=== PATIENT | male | born 1935 | race Caucasian/White ===

== ENCOUNTER 2022-09-21 04:25 | Outpatient (RCR) | payer MEDICARE, SELFPAY | END 2022-10-20 23:59 | disposition home or self-care (01) | LOC: MM 04:25 | PROVIDERS: PCP Internal Medicine; Visit Provider Internal Medicine | DX: Z51.81 Encounter for therapeutic drug level monitoring (principal); Z79.01 Long term (current) use of anticoagulants; I48.91 Unspecified atrial fibrillation | CPT/HCPCS: 85610; G0463 ==

== ENCOUNTER 2022-10-25 10:46 | Outpatient (RCR) | payer MEDICARE, SELFPAY | END 2022-11-20 16:44 | disposition home or self-care (01) | LOC: MM 10:46 | PROVIDERS: PCP Internal Medicine; Visit Provider Internal Medicine | DX: Z51.81 Encounter for therapeutic drug level monitoring (principal); Z79.01 Long term (current) use of anticoagulants; I48.91 Unspecified atrial fibrillation | CPT/HCPCS: 85610; G0463 ==

== ENCOUNTER 2022-11-21 08:55 | Outpatient (RCR) | payer MEDICARE, SELFPAY | END 2022-12-21 15:42 | disposition home or self-care (01) | LOC: MM 08:55 | PROVIDERS: Visit Provider Internal Medicine | DX: Z51.81 Encounter for therapeutic drug level monitoring (principal); Z79.01 Long term (current) use of anticoagulants; I48.91 Unspecified atrial fibrillation ==

== ENCOUNTER 2022-12-22 07:52 | Outpatient (RCR) | payer MEDICARE, SELFPAY | END 2023-01-19 16:29 | disposition home or self-care (01) | LOC: MM 07:52 | PROVIDERS: Visit Provider Internal Medicine | DX: Z51.81 Encounter for therapeutic drug level monitoring (principal); Z79.01 Long term (current) use of anticoagulants; I48.91 Unspecified atrial fibrillation | CPT/HCPCS: 85610; G0463 ==

== ENCOUNTER 2023-01-21 23:11 | Outpatient (RCR) | payer MEDICARE, SELFPAY | END 2023-02-20 17:06 | disposition home or self-care (01) | LOC: MM 23:11 | PROVIDERS: Visit Provider Internal Medicine | DX: Z51.81 Encounter for therapeutic drug level monitoring (principal); Z79.01 Long term (current) use of anticoagulants; I48.91 Unspecified atrial fibrillation | CPT/HCPCS: 85610; G0463 ==

== ENCOUNTER 2023-02-21 00:08 | Outpatient (RCR) | payer MEDICARE, SELFPAY | END 2023-03-22 15:59 | disposition home or self-care (01) | LOC: MM 00:08 | PROVIDERS: Visit Provider Internal Medicine | DX: Z51.81 Encounter for therapeutic drug level monitoring (principal); Z79.01 Long term (current) use of anticoagulants; I48.91 Unspecified atrial fibrillation | CPT/HCPCS: 85610; G0463 ==

== ENCOUNTER 2023-03-05 08:06 | Outpatient (OUT) | payer MEDICARE, SELFPAY ==
--- NOTE | 2023-03-05 09:11 | CA_ITS ---
Patient Name: JOSE CANO MR#: [id number] : 1935 Exam Date: 03/05/2023 Ordering Doctor: MRS. 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 DESCRIPTION: COMPLETE ECHOCARDIOGRAM Real-time transthoracic echocardiography with 2D, M-mode, spectral and color flow Doppler performed. QUALITY: Technical quality was good. LEFT VENTRICLE: Normal chamber size. Mild left ventricular hypertrophy. LV EF: Global left ventricular systolic function is normal. Calculated left ventricular ejection fraction is 60%. No significant wall motion abnormalities. DIASTOLIC: Grade II diastolic dysfunction. ATRIAL SEPTUM: Inadequately seen. LEFT ATRIUM: Moderate dilatation. RIGHT ATRIUM: Moderate dilatation. RIGHT VENTRICLE: Appears normal in size. Systolic function appears preserved. TRICUSPID VALVE: Normal mobility and thickness. Unable to assess for mitral stenosis. Moderate regurgitation. Mild pulmonary hypertension. RVSP 39mmHg MITRAL VALVE: Normal mobility and thickness. Mild mitral annular calcification. Mild mitral regurgitation. AORTIC VALVE: Normal trileaflet appearance. Moderately calcified aortic valve. Doppler velocity suggests mild to moderate aortic valve stenosis. DVI 0.3, MACRINA 1.0cm2, Vmax 2.3m/s, Mean gradient 12mmHg.Trivial aortic regurgitation. AORTIC ROOT: Normal diameter and appearance. PULMONIC VALVE: Normal thickness and mobility. No stenosis. Trivial regurgitation. PERICARDIUM: No evidence of pericardial effusion. IVC: Collapses with inspirations. Normal size. CONCLUSION: 1. Global left ventricular systolic function is normal; visually estimated ejection fraction is 55 to 60% 2. Mild increased left ventricular wall thickness 3. Grade 2, moderate diastolic dysfunction 4. The right ventricle appears normal in size and systolic function 5. Biatrial enlargement 6. Moderate tricuspid regurgitation 7. Mildly elevated right ventricular systolic pressure; RVSP 39 mmHg 8. Mild mitral regurgitation 9. Mild to moderate aortic valve stenosis Adult Echocardiography Procedure Report Left Ventricle LVEDD (3.7 - 5.6 cm): 5.53 cm LVESD (2.2 - 4.0 cm): 3.93 cm LVIVS thickness (0.6 - 1.2 cm): 1.26 cm LVPW thickness (0.5 - 1.0 cm): 1.13 cm e': 0.08 m/s E - e': 12.12 LVOT Max Gradient: 2.15 mm[Hg] LVOT Area (cm2): 0.73 m/s Peak Velocity (LVOT): 0.73 m/s Mean Velocity (LVOT): 0.45 m/s LVOT Diameter 2.06 cm Left Ventricular Ejection Fraction: 59.94 % Left Atrium LA Volume Index (2D A2C): 35.90 ml/m2 Left Atrium Systolic Dimension: 4.89 cm Mitral Valve MV E to A Ratio: 1.05 Mitral Valve A-Wave Peak Velocity: 0.89 m/s Mitral Valve E-Wave Peak Velocity: 0.93 m/s Right Ventricle RV Internal Diastolic Dimension: 4.65 cm Aorta AO Root Diam: 3.16 cm Ascending Ao Diam: 2.85 cm Aortic Valve AoV Area (Peak Jeffry): 1.04 cm2, 1.04 cm2 AoV Area (VTI): 0.94 cm2, 0.94 cm2 Peak Velocity(Antegrade Flow): 2.34 m/s Peak Gradient(Antegrade Flow): 21.92 mm[Hg] Mean Velocity(Antegrade Flow): 1.65 m/s Mean Gradient(Antegrade Flow): 12.38 mm[Hg] Velocity Time Integral: 60.51 cm Tricuspid Valve Peak Velocity (Regurgitant Flow): 3.31 m/s, 2.99 m/s, 2.98 m/s Pulmonic Valve Mean Gradient: 3.12 mm[Hg], 2.60 mm[Hg] Mean Velocity: 0.81 m/s, 0.74 m/s Peak Velocity: 1.21 m/s Peak Gradient: 6.31 mm[Hg], 5.47 mm[Hg] Right Atrium Right Atrium Systolic Pressure: 84.25 ml, 84.25 ml Dictated by: Iban Garcia M.D. on 03/06/2023 at 09:31 Approved by: Iban Garcia M.D. on 03/06/2023 at 09:38
== END 2023-03-05 08:07 | disposition home or self-care (01) ==
LOC: CARD 08:06
PROVIDERS: Visit Provider Nurse Practitioner Acute Care
DX: I08.0 Rheumatic disorders of both mitral and aortic valves (principal); I50.22 Chronic systolic (congestive) heart failure
CPT/HCPCS: 93306

== ENCOUNTER 2023-03-23 08:45 | Outpatient (RCR) | payer MEDICARE, SELFPAY | END 2023-04-20 14:29 | disposition home or self-care (01) | LOC: MM 08:45 | PROVIDERS: Visit Provider Internal Medicine | DX: Z51.81 Encounter for therapeutic drug level monitoring (principal); Z79.01 Long term (current) use of anticoagulants; I48.91 Unspecified atrial fibrillation | CPT/HCPCS: 85610; G0463 ==

== ENCOUNTER 2023-05-09 15:42 | Outpatient (RCR) | payer MEDICARE, SELFPAY | END 2023-05-23 15:31 | disposition home or self-care (01) | LOC: MM 15:42 | PROVIDERS: Visit Provider Internal Medicine | DX: Z51.81 Encounter for therapeutic drug level monitoring (principal); Z79.01 Long term (current) use of anticoagulants; I48.91 Unspecified atrial fibrillation | CPT/HCPCS: 85610; G0463 ==

== ENCOUNTER 2023-05-24 00:37 | Outpatient (RCR) | payer MEDICARE, SELFPAY | END 2023-06-21 17:02 | disposition home or self-care (01) | LOC: MM 00:37 | PROVIDERS: Visit Provider Internal Medicine | DX: Z51.81 Encounter for therapeutic drug level monitoring (principal); Z79.01 Long term (current) use of anticoagulants; I48.91 Unspecified atrial fibrillation | CPT/HCPCS: 85610; G0463 ==

== ENCOUNTER 2023-06-22 03:22 | Outpatient (RCR) | payer MEDICARE, SELFPAY | END 2023-07-20 14:00 | disposition home or self-care (01) | LOC: MM 03:22 | PROVIDERS: Visit Provider Internal Medicine | DX: Z51.81 Encounter for therapeutic drug level monitoring (principal); Z79.01 Long term (current) use of anticoagulants; I48.91 Unspecified atrial fibrillation ==

== ENCOUNTER 2023-07-23 03:18 | Outpatient (RCR) | payer MEDICARE, SELFPAY | END 2023-08-21 17:40 | disposition home or self-care (01) | LOC: MM 03:18 | PROVIDERS: Visit Provider Internal Medicine | DX: Z51.81 Encounter for therapeutic drug level monitoring (principal); Z79.01 Long term (current) use of anticoagulants; I48.91 Unspecified atrial fibrillation | CPT/HCPCS: 85610; G0463 ==

== ENCOUNTER 2023-08-22 00:12 | Outpatient (RCR) | payer MEDICARE, SELFPAY | END 2023-09-21 11:06 | disposition home or self-care (01) | LOC: MM 00:12 | PROVIDERS: Visit Provider Internal Medicine | DX: Z51.81 Encounter for therapeutic drug level monitoring (principal); Z79.01 Long term (current) use of anticoagulants; I48.91 Unspecified atrial fibrillation | CPT/HCPCS: 85610; G0463 ==

== ENCOUNTER 2023-09-18 07:36 | Outpatient (OUT) | payer MEDICARE, SELFPAY ==
--- OUTSIDE RECORDS SUMMARY | 2023-09-18 07:39 | XMS_ITS ---
Patient Summarization (C-CDA 2.1 CCD) Created on: September 18, 2023 JAUN ESPINOZA : 1935 Sex: Male Author Organization Sample organization Care Team Providers Care Passenger Brakeman Name Role Phone PHYSICIAN, DEFAULT Unavailable Unavailable PHYSICIAN, DEFAULT Unavailable Unavailable HOYJOSÉ MIGUEL Unavailable Unavailable FAWWAD, MUNOZ H Attending Unavailable HOY ., DR VALDEZ Primary Care Unavailable FAWWAD, MUNOZ H Admitting Unavailable FAWWAD, MUNOZ H Attending Unavailable HOY ., DR VALDEZ Primary Care Unavailable FAWWAD, MUNOZ H Admitting Unavailable HOY ., DR VALDEZ Primary Care Unavailable FAWWAD, MUNOZ H Admitting Unavailable FAWWAD, MUNOZ H Attending Unavailable FAWWAD, MUNOZ H Attending Unavailable HOY ., DR VALDEZ Primary Care Unavailable FAWWAD, MUNOZ H Admitting Unavailable FAWWAD, MUNOZ H Attending Unavailable HOY ., DR VALDEZ Primary Care Unavailable FAWWAD, MUNOZ H Admitting Unavailable HOY ., DR VALDEZ Primary Care Unavailable FAWWAD, MUNOZ H Attending Unavailable FAWWAD, MUNOZ H Admitting Unavailable HOY ., DR VALDEZ Primary Care Unavailable FAWWAD, MUNOZ H Admitting Unavailable FAWWAD, MUNOZ H Attending Unavailable HOY ., DR VALDEZ Primary Care Unavailable FAWWAD, MUNOZ H Admitting Unavailable FAWWAD, MUNOZ H Attending Unavailable HOY ., DR VALDEZ Admitting Unavailable HOY ., DR VALDEZ Attending Unavailable HOY ., DR VALDEZ Consulting Unavailable HOY ., DR VALDEZ Primary Care Unavailable FAWWAD, MUNOZ H Admitting Unavailable HOY ., DR VALDEZ Primary Care Unavailable FAWWAD, MUNOZ H Attending Unavailable HOY ., DR VALDEZ Primary Care Unavailable FAWWAD, MUNOZ H Attending Unavailable FAWWAD, MUNOZ H Admitting Unavailable FAWWAD, MUNOZ H Attending Unavailable HOY ., DR JOSÉ MIGUEL Primary Care Unavailable SHAIKH Matthew HARRIS Admitting Unavailable MARIANGEL KAISER Attending Unavailable Encounters Encounter Date Encounter Type Care Provider Facility Start: 02-22-2023 End: 02-22-2023 ambulatory MARIANGEL KAISER [facility] Start: 08-21-2022 End: 09-20-2022 ambulatory SHAIKH Matthew HARRIS Facility:[facility] Start: 07-24-2022 End: 08-18-2022 ambulatory SHAIKH Matthew HARRIS Facility:[facility] Start: 06-21-2022 End: 07-21-[address] JOSÉ MIGUEL CABELLO . Facility:[facility] Start: 05-24-2022 End: 06-21-[address] JOSÉ MIGUEL CABELLO . Facility:[facility] Start: 04-24-2022 End: 05-23-2022 ambulatory SHAIKH Matthew HARRIS Facility:[facility] Start: 03-23-2022 End: 04-23-2022 ambulatory SHAIKH Matthew HARRIS Facility:[facility] Start: 02-21-2022 End: 03-22-2022 ambulatory SHAIKH Matthew HARRIS Facility:[facility] Start: 01-23-2022 End: 01-24-[address] JOSÉ MIGUEL CABELLO . Facility:[facility] Start: 01-21-2022 End: 02-20-[address] JOSÉ MIGUEL CABELLO . Facility:[facility] Start: 12-22-2021 End: 01-21-[address] JOSÉ MIGUEL CABELLO . Facility:[facility] Start: 11-21-2021 End: 12-21-[address] JOSÉ MIGUEL CABELLO . Facility:[facility] Start: 10-21-2021 End: 11-18-2021 ambulatory SHAIKH Matthew HARRIS Facility:[facility] Start: 04-19-2018 End: 04-20-2018 Patient encounter procedure DEFAULT PHYSICIAN Facility:[facility] Payers Date Payer Category Payer Medicare [id number] 1957 Medicare [id number] 1957 Unknown [id number] 1935 Unknown [id number] 2.16.8 [id number] 1935 Unknown [id number] 2.16.84 [id number] 1935 Unknown [id number] 2.16.84 [id number] 1935 Unknown [id number] 2.16.84 [id number] 1935 Unknown [id number] 2.16.84 [id number] 1935 Unknown [id number] 2.16.84 [id number] 1935 Unknown [id number] 2.16.84 [id number] 1935 Unknown [id number] 2.16.84 [id number] 1935 Unknown [id number] 2.16.84 [id number] 1935 Unknown [id number] 2.16.84 [id number] 1935 Unknown [id number] 2.16.84 [id number] 1935 Unknown [id number] 2.16.84 [id number] 1935 Unknown [id number] 2.16.84 [id number] Unknown Problems Problem Classification Problem Date Documented Date Episodic/Chronic Cardiac dysrhythmias (5 sources) Unspecified atrial fibrillation; Translations: [UNSPECIFIED ATRIAL FIBRILLATION] Onset: 07-24-2022 Chronic Congestive heart failure; nonhypertensive (2 sources) Chronic systolic (congestive) heart failure; Translations: [Chronic systolic (congestive) heart failure] Onset: 02-22-2023 Chronic Coronary atherosclerosis and other heart disease (2 sources) Atherosclerotic heart disease of [place] coronary artery without angina pectoris; Translations: [Atherosclerotic heart disease of [place] coronary artery without angina pectoris] Onset: 02-22-2023 Chronic Essential hypertension (2 sources) Essential (primary) hypertension; Translations: [Essential (primary) hypertension] Onset: 02-22-2023 Chronic Heart valve disorders (2 sources) Rheumatic disorders of both mitral and aortic valves; Translations: [Rheumatic disorders of both mitral and aortic valves] Onset: 02-22-2023 Chronic Other aftercare (5 sources) Encounter for therapeutic drug level monitoring; Translations: [ENC THERAPEUTC DRUG LEVL MONITORING] Onset: 08-19-2022 Episodic Other aftercare (1 source) halfway (current) use of anticoagulants; Translations: [BED CONTROL SPECIALIST CURRNT USE ANTICOAGULANTS] Onset: 09-20-2022 Episodic Residual codes; unclassified (4 sources) Obstructive sleep apnea (adult) (pediatric); Translations: [OBSTRUCTIVE SLEEP APNEA] Onset: 01-23-2022 Chronic Results Test Name Value Interpretation Reference Range Facil ity 36on 06-07-2023 36 Regarding echo performed 05/05/2023: MD Debbie Theodore MA Echo shows stable heart function. follow-up as planned. LM for patient on his VM. Asked him to return my call if he had questions or concerns. [facility] 36on 03-08-2023 36 Please let him blood pressures a little high, we can restart Amlodipine at lower dose 2.5 mg daily. Please send scripts. Normal [facility] Office Visiton 02-22-2023 Follow-up visit [id number] Jaun Espinoza 1935 M Date Provider Department Center 02/22/2023 [id number] KAISER [facility] Family History Problem Relation Age of Onset Stroke Mother Coronary artery disease Mother Cancer Father Coronary artery disease Sister Family Status - Relation Status Age at Mother Father Sister Level of Service:12412 [place] OFFICE/OUTPATIENT ESTABLISHED MOD MDM 30-39 MIN [facility] Progress note 02-22-2023 Note Date & Type Note Facility 02-22-2023 Note Cardiology Clinic No te Subjective Jaun Remy Rutherford is a 87 y.o. year old male patient with past medical history of coronary artery disease status post CABG in 2016, paroxysmal atrial flutter on Eliquis, Hypertension,and valvular heart disease seen in follow-up. Patient Active Problem List Diagnosis Aortic valve stenosis Atrial flutter (CMS/HCC) Cardiovascular stress test abnormal Coronary arteriosclerosis Dyspnea Hypertensive disorder Nausea Obesity Systolic heart failure (CMS/HCC) Family History Problem Relation Name Age of Onset Stroke Mother Coronary artery disease Mother Cancer Father Coronary artery disease Sister Social History Tobacco Use Smoking status: Former Types: Cigarettes Smokeless tobacco: Never Substance Use Topics Alcohol use: Yes Comment: occasional HPI He is an 87-year-old man. He has CAD s/p CABG surgery and reversion of atrial flutter. He underwent CABG surgery on 08/11/2015 for severe 3 vessel disease. His LV function was normal before and after the operation. One week after discharge, he developed atrial flutter and reduced LV EF of 20%. He underwent cardioversion to sinus rhythm. He was maintained on amiodarone and coumadin (NOAC have high copay for him). He follows with the anticoagulation clinic at [facility]. He has mild aortic valve stenosis. He has a linq recorder implant 10/2015. This has been recording sinus rhythm. The last loop recorder check in January 2019 showed no evidence of atrial fibrillation. Battery is at [employer]. Review of Systems Cardiovascular: Negative for chest pain, dyspnea on exertion, irregular heartbeat, leg swelling, near-syncope, orthopnea, palpitations, paroxysmal nocturnal dyspnea and syncope. Objective Visit Vitals BP 134/68 (BP Location: Left arm, Patient Position: Sitting) Pulse 66 Ht 1.803 m (5' 11 ) Wt 110 kg (243 lb) SpO2 97% BMI 33.89 kg/m??? Smoking Status Former BSA 2.35 m??? Physical Exam General: Awake, alert, NAD Pulm: Breath sounds clear to ascultation bilaterally with no wheeze, crackles or rhonchi Cards: Regular rate and rhythm, S1, S2. No S3 or S4 gallop. Murmur: II/ JULIET Extr: Lower extremity edema: None. DP pulses:2+ Skin: warm, dry, well perfused Neuro: A&Ox3, No gross deficits Allergies No Known Allergies Medications Current Outpatient Medications: aspirin 81 mg chewable tablet, Chew 1 tablet every day by oral route., Disp: , Rfl: metoprolol succinate XL (Toprol-XL) 50 mg 24 hr tablet, Take 1 tablet (50 mg) by mouth in the morning., Disp: 90 tablet, Rfl: 3 pravastatin (Pravachol) 40 mg tablet, Take 1 tablet (40 mg) by mouth in the morning., Disp: 90 tablet, Rfl: 3 warfarin (Coumadin) 2 mg tablet, TAKE 1 TO 2 TABLETS BY MOUTH DAILY DIRECTED by medication management clinic, Disp: , Rfl: amLODIPine (Norvasc) 10 mg tablet, Take 1 tablet (10 mg) by mouth in the morning. (Patient not taking: Reported on 02/22/2023), Disp: 90 tablet, Rfl: 3 amLODIPine (Norvasc) 5 mg tablet, Take 1 tablet (5 mg) by mouth in the morning., Disp: 90 tablet, Rfl: 3 Recent Labs No recent labs Imaging and other tests Echocardiogram 06/01/2021: LV systolic function is normal, visually estimated ejection fraction is 55 to 60%, segmental wall motion abnormalities seen, diastolic function is indeterminate, RV is normal size and function. Mild tricuspid regurgitation, mildly elevated right-sided pressures, mild aortic valve stenosis. Blood testing 06/02/2021: Hemoglobin 13.4, platelets 233, potassium 4.6, BUN 17, creatinine 0.83, cholesterol 129, HDL 37, triglycerides 107, LDL 78. Prior testing: ECHO 10/28/2019 Global left ventricular systolic function is normal. The EF is 55 % visually. Unable to assess diastolic dysfunction. The right ventricle is normal in size. Right ventricular systolic function appears normal. Doppler studies suggest normal right sided pressures. Mild mitral regurgitation. Mild aortic valve stenosis. Mild tricuspid regurgitation. No significant change when compared to the previous study 04/19/2018 Echocardiogram 04/19/2018: Global left ventricular systolic function is at lower limits of normal (Visually estimated EF 50%). The left ventricle is normal size. Left ventricular wall thickness is mildly increased. Concentric left ventricular hypertrophy. The septum is abnormal in its motion, not unusal finding in the post open heart patient. Normal diastolic function. Mild mitral regurgitation. Mild tricuspid regurgitation. Doppler studies suggest mildly elevated right sided pressures. RVSP 42 mmHg. The peak instantaneous transvalvular aortic gradient = 26 mmHg with mean gradient = 14 mmHg and aortic valve area = 1.5-1.6 cm2 by continuity equation. The dimensionless index = 0.39 (less than 0.25 is consistent with severe aortic stenosis.) Compared to prior echocardiograms of 2016 there is now mild aortic stenosis. Note that prior echoca (more content not included)... [facility] Progress note 02-22-2023 Note Date & Type Note Facility 02-22-2023 Note Patient here for 1 y ear follow up CAD, aortic valve stenosis, systolic heart failure, and atrial flutter. Annual echo has not been completed yet. He has been out of amlodipine for awhile now. Denies chest pain, SOB, palpitations, lightheadedness, and bleeding on warfarin. Review of Systems All other systems reviewed and are negative. [facility] Summary Purpose Family History No Family History Records FoundNo Family History Records FoundNo Family History Records Found Advance Directives No Advanced Directives Records FoundNo Advanced Directives Records FoundNo Advanced Directives Records Found Additional Source Comments (unrecognized sect ion and content) No Status Records FoundNo Status Records FoundNo Status Records Found INFORMATION SOURCE (unrecogn ized section and content) DATE CREATED AUTHOR 04/20/2018 [facility] DATE CREATED AUTHOR AUTHOR'S ORGANIZ ATION 09/29/2022 [facility] DATE CREATED AUTHOR AUTHOR'S ORGANIZ ATION 06/09/2023 [facility] FOR RECORDS PERTAINING TO PATIENTS WHO ARE OR HAVE BEEN ENROLLED IN A CHEMICAL DEPENDENCY/SUBSTANCEABUSE PROGRAM, SOME INFORMATION MAY BE OMITTED. This clinical summary was aggregated from multiple sources. Caution should be exercised in using it in the provision of clinical care. This summary normalizes information from multiple sources, and as a consequence, information in this document may materially change the coding, format and clinical context of patient data. In addition, data may be omitted in some cases. CLINICAL DECISIONS SHOULD BE BASED ON THE PRIMARY CLINICAL RECORDS. [employer] provides no warranty or guarantee of the accuracy or completeness of information in this document.
[2023-09-18 08:07] LABS: Basophils Absolute Auto 0.1 10^3/uL (0.0-0.1); Basophils Percent Auto 0.8 % (0.2-2.0); Eosinophils Absolute Auto 0.2 10^3/uL (0.0-0.7); Eosinophils Percent Auto 3.2 % (0.9-7.0); Hematocrit 41.9 % (42.0-54.0); Hemoglobin 13.1 g/dL (14.0-18.0); Immature Granulocytes Abs Auto 0.02 10^3/uL (0.00-0.03); Immature Granulocytes Pct Auto 0.3 % (0.0-0.5); Lymphocytes Absolute Auto 1.1 10^3/uL (1.2-3.8); Lymphocytes Percent Auto 18.4 % (20.5-60.0); Mean Corpuscular HGB Conc 31.3 g/dL (29.9-35.2); Mean Corpuscular Hemoglobin 28.2 pg (25.9-34.0); Mean Corpuscular Volume 90.3 fL (80.0-94.0); Mean Platelet Volume 9.6 fL (9.5-13.5); Monocytes Absolute Auto 0.5 10^3/uL (0.3-0.8); Monocytes Percent Auto 7.9 % (1.7-12.0); Neutrophils Absolute Auto 4.3 10^3/uL (1.4-6.5); Neutrophils Percent Auto 69.4 % (43.0-75.0); Platelet Count 191 10^3/uL (150-450); Red Blood Count 4.64 10^6/uL (4.70-6.10); White Blood Count 6.2 10^3/uL (4.0-11.0)
[2023-09-18 08:53] LABS: Alanine Aminotransferase 25 U/L (16-63); Albumin Globulin Ratio 0.8; Albumin Level 3.2 g/dL (3.4-5.0); Alkaline Phosphatase 104 U/L (46-116); Anion Gap 10.6; Aspartate Amino Transferase 21 U/L (15-37); BUN Creatinine Ratio 19.1; Bilirubin Total 0.3 mg/dL (0.2-1.0); Calcium 8.5 mg/dL (8.5-10.1); Carbon Dioxide 29.5 mmol/L (21.0-32.0); Chloride 103 mmol/L (98-107); Chol HDL Ratio 3.4; Cholesterol 148 mg/dL (<=200); Estimated GFR (African America >60 (>=60); Estimated GFR (Non-African Ame >60 (>=60); Globulin 3.9 g/dL; Glucose 111 mg/dL (74-106); HDL Cholesterol 44 mg/dL (40-60); LDL Cholesterol Calculated 76.8 mg/dL; Potassium 4.1 mmol/L (3.5-5.1); Sodium 139 mmol/L (136-145); Total Protein 7.1 g/dL (6.4-8.2); Triglycerides 136 mg/dL (<=150); VLDL CHOLESTEROL 27.2 mg/dL
== END 2023-09-18 07:37 | disposition home or self-care (01) ==
LOC: LAB 07:37
PROVIDERS: PCP Family Medicine; Visit Provider Nurse Practitioner Acute Care
DX: I25.10 Atherosclerotic heart disease of native coronary artery without angina pectoris (principal)
CPT/HCPCS: 36415; 80053; 80061; 85025

== ENCOUNTER 2023-09-24 00:07 | Outpatient (RCR) | payer MEDICARE, SELFPAY | END 2023-10-19 09:54 | disposition home or self-care (01) | LOC: MM 00:07 | PROVIDERS: PCP Family Medicine; Visit Provider Internal Medicine | DX: Z51.81 Encounter for therapeutic drug level monitoring (principal); Z79.01 Long term (current) use of anticoagulants; I48.91 Unspecified atrial fibrillation | CPT/HCPCS: 85610; G0463 ==

== ENCOUNTER 2023-09-27 06:51 | Outpatient (OUT) | payer MEDICARE, SELFPAY ==
--- OUTSIDE RECORDS SUMMARY | 2023-09-27 06:53 | XMS_ITS | CCD ---
Author Organization [facility] [place] Care Team Providers Care Produce Specialist Name Role Phone PHYSICIAN, DEFAULT Unavailable Unavailable PHYSICIAN, DEFAULT Unavailable Unavailable DAVIDYJOSÉ MIGUEL Unavailable Unavailable FAWWAD, MUNOZ H Attending [...] Admitting Unavailable FAWWAD, MUNOZ H Attending Unavailable DR JOSÉ MIGUEL PEÑA Primary Care Unavailable SHAIKH Matthew HARRIS Admitting Unavailable MARIANGEL KAISER Attending Unavailable SURAJ BROWN Attending Unavailable Problems Problem Classification Problem Date Documented Date Episodic/Chronic Cardiac dysrhythmias (7 sources) Unspecified atrial fibrillation; Translations: [Unspecified atrial flutter] Onset: 07-24-2022 Chronic Congestive heart failure; nonhypertensive (4 sources) Chronic diastolic (congestive) heart failure; Translations: [Chronic systolic (congestive) heart failure] Onset: 02-22-2023 Chronic Coronary atherosclerosis and other heart disease (2 sources) Atherosclerotic heart disease of [place] coronary artery without angina pectoris; Translations: [Atherosclerotic heart disease of [place] coronary artery without angina pectoris] Onset: 02-22-2023 Chronic Essential hypertension (2 sources) Essential (primary) hypertension; Translations: [Essential (primary) hypertension] Onset: 02-22-2023 Chronic Heart valve disorders (4 sources) Nonrheumatic aortic (valve) stenosis; Translations: [Rheumatic disorders of both mitral and aortic valves] Onset: 02-22-2023 Chronic Other aftercare (5 sources) Encounter for therapeutic drug level monitoring; Translations: [ENC THERAPEUTC DRUG LEVL MONITORING] Onset: 08-19-2022 Episodic Other aftercare (1 source) 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; Translations: [AXMINSTER WEAVER CURRNT USE ANTICOAGULANTS] Onset: 09-20-2022 Episodic Residual codes; unclassified (4 sources) Obstructive sleep apnea (adult) (pediatric); Translations: [OBSTRUCTIVE SLEEP APNEA] Onset: 01-23-2022 Chronic Results Test Name Value Interpretation Reference Range Facil ity Office Visiton 09-19-2023 Follow-up visit [id number] Jaun Espinoza 1935 M Date Provider Department Center 09/19/2023 [facility]SURAJ BROWN [facility] Family History Problem Relation Age of Onset Stroke Mother Coronary artery disease Mother Cancer Father Coronary artery disease Sister Family Status - Relation Status Age at Mother Father Sister Level of Service:85629 SD OFFICE/OUTPATIENT ESTABLISHED MOD MDM [address] [facility] 36on 06-07-2023 36 Regarding echo performed 05/05/2023: MD Debbie Theodore MA Echo shows stable heart function. follow-up as planned. LM for patient on his VM. Asked him to return my call if he had questions or concerns. [facility] 36on 03-08-2023 36 Please let him blood pressures a little high, we can restart Amlodipine at lower dose 2.5 mg daily. Please send scripts. [facility] Office Visiton 02-22-2023 Follow-up visit [id number] Jaun Espinoza 1935 Date Provider Department Center 02/22/2023 [facility] Family History Problem Relation Age of Onset Stroke Mother Coronary artery disease Mother Cancer Father Coronary artery disease Sister Family Status - Relation Status Age at Mother Father Sister Level of Service:40890 SD OFFICE/OUTPATIENT ESTABLISHED MOD MDM 30-39 MIN [facility] Encounters Encounter Date Encounter Type Care Provider Facility Start: 09-19-2023 End: 09-19-[address]OWN [facility] Start: 02-22-2023 End: 02-22-2023 ambulatory MARIANGEL KAISER [facility] Start: 08-21-2022 End: 09-20-2022 ambulatory SHAIKH Matthew HARRIS Facility:[facility] Start: 07-24-2022 End: 08-18-2022 ambulatory SHAIKH Matthew HARRIS Facility:[facility] Start: 06-21-2022 End: 07-21-[address] JOSÉ MIGUEL CABELLO . Facility:[facility] Start: 05-24-2022 End: 06-21-[address] JOSÉ MIGUEL CABELLO . Facility:[facility] Start: 04-24-2022 End: 05-23-2022 ambulatory H FAWWAElva Facility:[facility] Start: 03-23-2022 End: 04-23-2022 ambulatory SHAIKH [...] End: 04-20-2018 Patient encounter procedure DEFAULT PHYSICIAN Facility:[facility] Payers Date Payer Category Payer Medicare [id number] 1957 Medicare [id number] 1957 Unknown [id number] 1935 Unknown [id number] 2.16.8 40.1.659074.3.579.2.647 1935 Unknown [id number] 2.16.84 0.1.891495.3.579.2.593 1937 Unknown [id number] 2.16.84 0.1.040288.3.579.2.593 1937 Unknown [id number] 2.16.84 0.1.614904.3.579.2.593 1937 Unknown [id number] 2.16.84 0.1.224573.3.579.2.593 1937 Unknown [id number] 2.16.84 0.1.664202.3.579.2.593 1937 Unknown [id number] 2.16.84 0.1.688600.3.579.2.593 1937 Unknown [id number] 2.16.84 0.1.353515.3.579.2.593 1937 Unknown [id number] 2.16.84 0.1.617658.3.579.2.593 1937 Unknown [id number] 2.16.84 0.1.079586.3.579.2.593 1937 Unknown [id number] 2.16.84 0.1.511378.3.579.2.593 1937 Unknown [id number] 2.16.84 0.1.998479.3.579.2.593 1937 Unknown [id number] 2.16.84 0.1.650775.3.579.2.593 Unknown Progress note 09-19-2023 Note Date & Type Note Facility 09-19-2023 Note [place] Cardiology - [facility] Subjective Jaun Espinoza is a 88 y.o. year old male patient being seen for 6 mo follow up CAD, hypertension, mitral and aortic valve stenosis, and chronic systolic heart failure. He was restarted on low dose amlodipine shortly after last visit in Feb 2023 for uncontrolled BP's. Had echo around that time as well. Routine labs w/ lipid panel were performed yesterday. He denies chest pain, SOB, palpitations, and lightheadedness/syncope. Patient Active Problem List Diagnosis Aortic valve [...] Topics Alcohol use: Yes Comment: occasional HPI Mr Espinoza is seen in follow up. He is an 88-year-old man. He has CAD s/p CABG surgery [...] He follows with the anticoagulation clinic at [facility]. He has aortic valve stenosis being followed with echocardiogram. He has a linq recorder implant 10/2015. This has been recording sinus rhythm. The last loop recorder check in January 2019 showed no evidence of atrial fibrillation. Battery is at PATIENT ACCESS. He has been well with no symptoms. He feels good. He has no chest pain and no shortness of breath. He is doing well. He has no lower extremity swelling. He has no palpitations. His main complaint is easy bruisability and bruising in the arms. Review of Systems Hematologic/Lymphatic: Bruises/bleeds easily. Skin: Positive for color change (easy bruising). Musculoskeletal: Positive for arthritis and back pain. All other systems reviewed and are negative. Objective Visit Vitals BP 134/80 (BP Location: Right arm, Patient Position: Sitting) Pulse 70 Ht 1.803 m (5' 11 ) Wt 108 kg (237 lb) SpO2 97% BMI 33.05 kg/m??? Smoking Status Former BSA 2.33 m??? Physical Exam Constitutional: Appearance: He is well-developed. He is not ill-appearing. HENT: Head: Normocephalic and atraumatic. Nose: Nose normal. Eyes: General: No scleral icterus. Pupils: Pupils are equal, round, and reactive to light. Neck: Thyroid: No thyromegaly. Vascular: No JVD. Cardiovascular: Rate and Rhythm: Normal rate and regular rhythm. Pulses: Radial pulses are 2+ on the right side and 2+ on the left side. Heart sounds: Murmur heard. Systolic (RUSB) murmur is present with a grade of 2/6. No friction rub. No gallop. Pulmonary: Effort: Pulmonary effort is normal. No respiratory distress. Breath sounds: Normal breath sounds. No wheezing or rales. Chest: Chest wall: No tenderness. Abdominal: General: Bowel sounds are normal. There is no distension. Palpations: Abdomen is soft. Tenderness: There is no abdominal tenderness. Musculoskeletal: General: No swelling. Cervical back: Neck supple. Skin: General: Skin is warm and dry. Neurological: General: No focal deficit present. Mental Status: He is alert and oriented to person, place, and time. Psychiatric: Mood and Affect: Mood normal. Behavior: Behavior is cooperative. Judgment: Judgment normal. Allergies No Known Allergies Medications Current Outpatient Medications: amLODIPine (Norvasc) 2.5 mg tablet, Take 1 tablet (2.5 mg) by mouth in the morning., Disp: 90 tablet, Rfl: 3 metoprolol succinate XL (Toprol-XL) 50 mg 24 hr tablet, Take 1 tablet (50 mg) by mouth in the morning., Disp: 90 tablet, Rfl: 3 pravastatin (Pravachol) 40 mg tablet, Take 1 tablet (40 mg) by mouth at bedtime., Disp: 90 tablet, Rfl: 3 warfarin (Coumadin) 2 mg tablet, TAKE 1 TO 2 TABLETS BY MOUTH DAILY DIRECTED by medication management clinic, Disp: , Rfl: Recent Labs Blood testing 06/02/2021: Hemoglobin 13.4, platelets 233, potassium 4.6, BUN 17, creatinine 0.83, cholesterol 129, HDL 37, triglycerides 107, LDL 78. Blood testing 09/18/2023: Hemoglobin 13.1, platelets 191, potassium 4.1, BUN 18, creatinine 0.94, EGFR more than 60, LFTs normal, cholesterol 148, triglycerides 136, LDL 77, HDL 44. Imaging and other tests Echocardiogram 03/05/2023: CONCLUSION: 1. Global left ventricular systolic function is normal; visually estimated ejection fraction is 55 to 60% 2. Mild increased left ventricular wall thickness 3. Grade 2, moderate diastolic dysfunction 4. The right ventr (more content not included)... [facility] Progress note 02-22-2023 Note Date & Type Note Facility 02-22-2023 Note Cardiology Clinic No te Subjective Jaun Espinoza is a 87 y.o. year old male [...] He follows with the anticoagulation clinic at [facility]. He has mild aortic valve stenosis. He has a linq recorder implant 10/2015. This has been recording sinus rhythm. The last loop recorder check in January 2019 showed no evidence of atrial fibrillation. Battery is at PATIENT ACCESS. Review of Systems Cardiovascular: Negative for chest [...] that prior echoca (more content not included)... [facility] Progress note 02-22-2023 Note Date & [...] All other systems reviewed and are negative. [facility] Summary Purpose Family History No Family History Records FoundNo Family History Records FoundNo Family History Records Found Advance Directives No Advanced Directives Records FoundNo Advanced Directives Records FoundNo Advanced Directives Records Found Additional Source Comments (unrecognized sect ion and content) No Status Records FoundNo Status Records FoundNo Status Records Found INFORMATION SOURCE (unrecogn ized section and content) DATE CREATED AUTHOR 04/20/2018 [facility] DATE CREATED AUTHOR AUTHOR'S ORGANIZ ATION 09/29/2022 [facility] DATE CREATED AUTHOR AUTHOR'S ORGANIZ ATION 09/20/2023 [facility] FOR RECORDS PERTAINING TO PATIENTS WHO ARE [...] BE BASED ON THE PRIMARY CLINICAL RECORDS. [employer] provides no warranty or guarantee of the accuracy or completeness of information in this document.
--- NOTE | 2023-09-27 06:56 | CA_ITS ---
Patient Name: JOSE CANO MR#: [id number] : 1935 Exam Date: 09/27/2023 Ordering Doctor: DR SURAJ BROWN M.D. ECHOCARDIOGRAM REPORT PROCEDURE: CA ECHO DOPPLER COMPLETE INDICATIONS: Aortic valve stenosis COMPARISON: None. DESCRIPTION: COMPLETE ECHOCARDIOGRAM Real-time transthoracic echocardiography with 2D, M-mode, spectral and color flow Doppler performed. QUALITY: Technical quality was good. LEFT VENTRICLE: Normal chamber size. Sigmoid septum. LV EF: Global left ventricular systolic function is normal. Calculated left ventricular ejection fraction is 64%. No wall motion abnormalities. DIASTOLIC: Diastolic function is indeterminate. ATRIAL SEPTUM: Inadequately seen. LEFT ATRIUM: Normal chamber size. RIGHT ATRIUM: Moderate dilatation. RIGHT VENTRICLE: Mild dilatation. Normal right ventricular systolic function. TRICUSPID VALVE: Normal mobility and thickness. Trivial regurgitation. Mild pulmonary hypertension. RVSP 36mmHg MITRAL VALVE: Normal mobility and thickness. No evidence of mitral valve stenosis. Mild mitral annular calcification. Mild mitral regurgitation. AORTIC VALVE: Normal trileaflet appearance. Severely calcified aortic valve. Doppler velocity suggests mild valve stenosis. DVI 0.3, MACRINA 1.4cm2, Vmax 2.2m/s, Mean gradient 10mmHg. No aortic regurgitation. AORTIC ROOT: Normal diameter and appearance. PULMONIC VALVE: Normal thickness and mobility. No stenosis. Trivial regurgitation. PERICARDIUM: No evidence of pericardial effusion. IVC: Collapses with inspirations. Normal size. CONCLUSION: 1. Global left ventricular systolic function is normal; visually estimated ejection fraction is 55 to 60% 2. The right ventricle is mildly dilated with normal systolic function 3. Right atrium is dilated 4. Diastolic function is indeterminate 5. Mildly elevated right ventricular systolic pressure; RVSP 36 mmHg 6. Mild mitral regurgitation 7. Mild aortic valve stenosis Adult Echocardiography Procedure Report Left Ventricle LVEDD (3.7 - 5.6 cm): 5.16 cm LVESD (2.2 - 4.0 cm): 3.74 cm LVIVS thickness (0.6 - 1.2 cm): 1.54 cm LVPW thickness (0.5 - 1.0 cm): 0.76 cm e': 0.08 m/s E - e': 8.30 LVOT Max Gradient: 2.00 mm[Hg] LVOT Area (cm2): 0.71 m/s Peak Velocity (LVOT): 0.71 m/s Mean Velocity (LVOT): 0.48 m/s LVOT Diameter 2.32 cm Left Ventricular Ejection Fraction: 64.37 % Left Atrium LA Volume Index (2D A2C): 31.27 ml/m2 Left Atrium Systolic Dimension: 4.41 cm Mitral Valve MV E to A Ratio: 0.76 Mitral Valve A-Wave Peak Velocity: 0.86 m/s Mitral Valve E-Wave Peak Velocity: 0.65 m/s Right Ventricle RV Internal Diastolic Dimension: 4.06 cm Aorta AO Root Diam: 3.36 cm Ascending Ao Diam: 2.93 cm Aortic Valve AoV Area (Peak Jeffry): 1.37 cm2, 1.37 cm2 AoV Area (VTI): 1.48 cm2, 1.59 cm2 Peak Velocity(Antegrade Flow): 2.18 m/s, 2.17 m/s Peak Gradient(Antegrade Flow): 19.05 mm[Hg], 18.90 mm[Hg] Mean Velocity(Antegrade Flow): 1.49 m/s, 1.62 m/s Mean Gradient(Antegrade Flow): 10.09 mm[Hg], 11.75 mm[Hg] Velocity Time Integral: 49.87 cm, 57.04 cm Tricuspid Valve Peak Velocity (Regurgitant Flow): 2.57 m/s, 2.52 m/s, 2.89 m/s Pulmonic Valve Mean Gradient: 2.11 mm[Hg], 2.41 mm[Hg] Mean Velocity: 0.66 m/s, 0.70 m/s Peak Velocity: 1.15 m/s Peak Gradient: 4.74 mm[Hg], 5.93 mm[Hg] Right Atrium Right Atrium Systolic Pressure: 71.50 ml, 71.50 ml Dictated by: Iban Garcia M.D. on 09/27/2023 at 15:19 Approved by: Iban Garcia M.D. on 09/27/2023 at 15:27
== END 2023-09-27 06:52 | disposition home or self-care (01) ==
LOC: CARD 06:52
PROVIDERS: PCP Family Medicine; Visit Provider Internal Medicine Interventional Cardiology
DX: I35.0 Nonrheumatic aortic (valve) stenosis (principal)
CPT/HCPCS: 93306

== ENCOUNTER 2023-10-22 00:26 | Outpatient (RCR) | payer MEDICARE, SELFPAY | END 2023-11-21 09:29 | disposition home or self-care (01) | LOC: MM 00:26 | PROVIDERS: PCP Family Medicine; Visit Provider Internal Medicine | DX: Z51.81 Encounter for therapeutic drug level monitoring (principal); Z79.01 Long term (current) use of anticoagulants; I48.91 Unspecified atrial fibrillation | CPT/HCPCS: 85610; G0463 ==

== ENCOUNTER 2023-11-22 00:27 | Outpatient (RCR) | payer MEDICARE, SELFPAY | END 2023-12-21 08:47 | disposition home or self-care (01) | LOC: MM 00:27 | PROVIDERS: PCP Family Medicine; Visit Provider Internal Medicine | DX: Z51.81 Encounter for therapeutic drug level monitoring (principal); Z79.01 Long term (current) use of anticoagulants; I48.91 Unspecified atrial fibrillation | CPT/HCPCS: 85610; G0463 ==

== ENCOUNTER 2023-12-24 00:42 | Outpatient (RCR) | payer MEDICARE, SELFPAY | END 2024-01-21 23:49 | disposition home or self-care (01) | LOC: MM 00:42 | PROVIDERS: PCP Family Medicine; Visit Provider Internal Medicine | DX: Z51.81 Encounter for therapeutic drug level monitoring (principal); Z79.01 Long term (current) use of anticoagulants; I48.91 Unspecified atrial fibrillation | CPT/HCPCS: 85610; G0463 ==

== ENCOUNTER 2024-01-22 01:12 | Outpatient (RCR) | payer MEDICARE, SELFPAY | END 2024-02-21 23:27 | disposition home or self-care (01) | LOC: MM 01:12 | PROVIDERS: PCP Family Medicine; Visit Provider Internal Medicine | DX: Z51.81 Encounter for therapeutic drug level monitoring (principal); Z79.01 Long term (current) use of anticoagulants; I48.91 Unspecified atrial fibrillation | CPT/HCPCS: 85610; G0463 ==

== ENCOUNTER 2024-01-29 06:52 | Outpatient (OUT) | payer MEDICARE, SELFPAY ==
--- OUTSIDE RECORDS SUMMARY | 2024-01-29 06:56 | XMS_ITS | CCD ---
Author Organization [facility] Team Providers Care Administrative Job Titles Name Role Phone PHYSICIAN, DEFAULT Unavailable Unavailable [...] Care Unavailable SHAIKH Matthew HARRIS Admitting Unavailable SURAJ BROWN Attending Unavailable MARIANGEL KAISER Attending Unavailable Problems Problem Classification Problem Date Documented Date Episodic/Chronic Cardiac dysrhythmias (7 sources) Unspecified atrial fibrillation; Translations: [Unspecified atrial flutter] Onset: 07-24-2022 Chronic Congestive heart failure; nonhypertensive (4 sources) Chronic diastolic (congestive) heart failure; Translations: [Chronic systolic (congestive) heart failure] Onset: 02-22-2023 Chronic Coronary atherosclerosis and other heart disease (2 sources) Atherosclerotic heart disease of [place] coronary artery without angina pectoris; Translations: [Atherosclerotic heart disease of [place] coronary artery without angina pectoris] Onset: 09-19-2023 Chronic Essential hypertension (2 sources) Essential (primary) hypertension; Translations: [Essential (primary) hypertension] Onset: 02-22-2023 Chronic Heart valve disorders (4 sources) Nonrheumatic aortic (valve) stenosis; Translations: [Rheumatic disorders of both mitral and aortic valves] Onset: 02-22-2023 Chronic Other aftercare (5 sources) Encounter for therapeutic drug level monitoring; Translations: [ENC THERAPEUTC DRUG LEVL MONITORING] Onset: 08-19-2022 Episodic Other aftercare (1 source) 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 Follow up in 1 year. LM on patient's VM. [facility] Office Visiton 09-19-2023 Follow-up visit [id number] Jaun Espinoza 1935 M Date Provider Department Center 09/19/2023 [facility]SUR[facility] Family History Problem Relation Age of Onset Stroke Mother Coronary artery disease Mother Cancer Father Coronary artery disease Sister Family Status - Relation Status Age at Mother Father Sister Level of Service:64465 UT OFFICE/OUTPATIENT ESTABLISHED MOD MDM 30 MIN [facility] 36on 06-07-2023 36 Regarding echo performed 05/05/2023: MD Debbie Theodore MA Echo shows stable heart function. follow-up as planned. LM for patient on his VM. Asked him to return my call if he had questions or concerns. [facility] 36on 03-08-2023 36 Please let him blood pressures a little high, we can restart Amlodipine at lower dose 2.5 mg daily. Please send scripts. [facility] Office Visiton 02-22-2023 Follow-up visit [id number] Jaun Espinoza 1935 Date Provider Department Center 02/22/2023 [id number] Family History Problem Relation Age of Onset Stroke Mother Coronary artery disease Mother Cancer Father Coronary artery disease Sister Family Status - Relation Status Age at Mother Father Sister Level of Service:80054 UT OFFICE/OUTPATIENT ESTABLISHED MOD MDM 30-39 MIN [facility] Encounters Encounter Date Encounter Type Care Provider Facility Start: 09-19-2023 End: 09-19-2023 ambulatory SURAJ BROWN [facility] Start: 02-22-2023 End: 02-22-2023 ambulatory MARIANGEL KAISER [facility] Start: 08-21-2022 End: 09-20-2022 ambulatory SHAIKH [...] HARRIS Facility:[facility] Start: 02-21-2022 End: 03-22-2022 ambulatory MUNOZ H STEVEN Facility:[facility] Start: 01-23-2022 End: 01-24-[address] JOSÉ MIGUEL CABELLO . Facility:[facility] Start: 01-21-2022 End: 02-20-[address] JOSÉ MIGUEL CABELLO . Facility:[facility] Start: 12-22-2021 End: 01-21-[address] JOSÉ MIGUEL CABELLO . Facility:[facility] Start: 11-21-2021 End: 12-21-[address] JOSÉ MIGUEL CABELLO . Facility:[facility] Start: 10-21-2021 End: 11-18-2021 ambulatory MUNOZ H STEVEN Facility:[facility] Start: 04-19-2018 End: 04-20-2018 Patient encounter procedure DEFAULT PHYSICIAN Facility:[facility] Payers Date Payer Category Payer Medicare [id number] 1957 Medicare [id number] 1957 Unknown [id number] 1935 Unknown [id number] 2.16.8 [id number] 1935 Unknown [id number] 2.16.84 0.1.623122.3.579.2.593 1937 Unknown [id number] 2.16.84 0.1.634197.3.579.2.593 1937 Unknown [id number] 2.16.84 0.1.451068.3.579.2.593 1937 Unknown [id number] 2.16.84 0.1.733945.3.579.2.593 1937 Unknown [id number] 2.16.84 0.1.448195.3.579.2.593 1937 Unknown [id number] 2.16.84 0.1.147206.3.579.2.593 1937 Unknown [id number] 2.16.84 0.1.870670.3.579.2.593 1937 Unknown [id number] 2.16.84 0.1.781366.3.579.2.593 1937 Unknown [id number] 2.16.84 0.1.800561.3.579.2.593 1937 Unknown [id number] 2.16.84 0.1.283924.3.579.2.593 1937 Unknown [id number] 2.16.84 0.1.827460.3.579.2.593 1937 Unknown [id number] 2.16.84 0.1.907319.3.579.2.593 Unknown Progress note 09-19-2023 Note Date & Type Note Facility 09-19-2023 Note [place] Cardiology - [facility] Subjective Jaun Espinoza is a [...] He follows with the anticoagulation clinic at [facility]. He has aortic valve stenosis being followed with echocardiogram. He has a linq recorder implant 10/2015. This has been recording sinus rhythm. The last loop recorder check in January 2019 showed no evidence of atrial fibrillation. 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 He has been well with no symptoms. [...] The right ventr (more content not included)... [facility] Progress note 02-22-2023 Note Date & [...] All other systems reviewed and are negative. [facility] Progress note 02-22-2023 Note Date & [...] He follows with the anticoagulation clinic at [facility]. He has mild aortic valve stenosis. He has a linq recorder implant 10/2015. This has been recording sinus rhythm. The last loop recorder check in January 2019 showed no evidence of atrial fibrillation. 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 Review of Systems Cardiovascular: Negative for chest [...] that prior echoca (more content not included)... [facility] Summary Purpose Family History No Family History Records FoundNo Family History Records FoundNo Family History Records Found Advance Directives No Advanced Directives Records FoundNo Advanced Directives Records FoundNo Advanced Directives Records Found Additional Source Comments (unrecognized sect ion and content) No Status Records FoundNo Status Records FoundNo Status Records Found INFORMATION SOURCE (unrecogn ized section and content) DATE CREATED AUTHOR 04/20/2018 [facility] DATE CREATED AUTHOR AUTHOR'S ORGANIZ ATION 09/29/2022 [facility] DATE CREATED AUTHOR AUTHOR'S ORGANIZ ATION 10/02/2023 [facility] FOR RECORDS PERTAINING TO PATIENTS WHO ARE [...] BE BASED ON THE PRIMARY CLINICAL RECORDS. [employer] provides no warranty or guarantee of the accuracy or completeness of information in this document.
[2024-01-29 07:08] LABS: Basophils Absolute Auto 0.1 10^3/uL (0.0-0.1); Basophils Percent Auto 1.2 % (0.2-2.0); Eosinophils Absolute Auto 0.2 10^3/uL (0.0-0.7); Eosinophils Percent Auto 3.8 % (0.9-7.0); Hemoglobin 13.5 g/dL (14.0-18.0); Immature Granulocytes Abs Auto 0.02 10^3/uL (0.00-0.03); Immature Granulocytes Pct Auto 0.3 % (0.0-0.5); Lymphocytes Absolute Auto 1.2 10^3/uL (1.2-3.8); Lymphocytes Percent Auto 20.4 % (20.5-60.0); Mean Corpuscular HGB Conc 31.4 g/dL (29.9-35.2); Mean Corpuscular Hemoglobin 28.4 pg (25.9-34.0); Mean Corpuscular Volume 90.5 fL (80.0-94.0); Mean Platelet Volume 9.4 fL (9.5-13.5); Monocytes Absolute Auto 0.5 10^3/uL (0.3-0.8); Monocytes Percent Auto 8.3 % (1.7-12.0); Neutrophils Absolute Auto 3.8 10^3/uL (1.4-6.5); Platelet Count 199 10^3/uL (150-450); Red Blood Count 4.75 10^6/uL (4.70-6.10); White Blood Count 5.8 10^3/uL (4.0-11.0)
[2024-01-29 09:06] LABS: Alanine Aminotransferase 26 U/L (16-63); Albumin Globulin Ratio 0.9; Albumin Level 3.4 g/dL (3.4-5.0); Alkaline Phosphatase 106 U/L (46-116); Aspartate Amino Transferase 26 U/L (15-37); BUN Creatinine Ratio 19.4; Bilirubin Total 0.4 mg/dL (0.2-1.0); Calcium 8.8 mg/dL (8.5-10.1); Chloride 102 mmol/L (98-107); Chol HDL Ratio 3.5; Cholesterol 154 mg/dL (<=200); Estimated GFR (African America >60 (>=60 mL/min/1.73m^2); Estimated GFR (Non-African Ame >60 (>=60 mL/min/1.73m^2); Free T3 2.39 pg/mL (2.18-3.98); Globulin 3.8 g/dL; Glucose 102 mg/dL (74-106); HDL Cholesterol 44 mg/dL (40-60); LDL Cholesterol Calculated 83.4 mg/dL; Sodium 139 mmol/L (136-145); Thyroid Stimulating Hormone 6.624 uIU/mL (0.358-3.740); Total Protein 7.2 g/dL (6.4-8.2); Triglycerides 133 mg/dL (<=150); VLDL CHOLESTEROL 26.6 mg/dL
[2024-01-29 09:11] LABS: Anion Gap 10.7; Carbon Dioxide 30.3 mmol/L (21.0-32.0)
[2024-01-29 09:33] LABS: Estimated Average Glucose 108 mg/dL; Glycohemoglobin A1C 5.4 % (4.5-6.2)
[2024-01-29 17:16] LABS: Prostate Specific Antigen Scrn 11.35 ng/mL (<=4.00)
== END 2024-01-29 06:53 | disposition home or self-care (01) ==
PROVIDERS: PCP Family Medicine; Visit Provider Family Medicine
DX: I11.0 Hypertensive heart disease with heart failure (principal); I50.9 Heart failure, unspecified; I48.92 Unspecified atrial flutter; M25.9 Joint disorder, unspecified; E78.5 Hyperlipidemia, unspecified; R73.09 Other abnormal glucose; E03.9 Hypothyroidism, unspecified; Z12.5 Encounter for screening for malignant neoplasm of prostate; Z51.81 Encounter for therapeutic drug level monitoring; Z79.01 Long term (current) use of anticoagulants; I48.91 Unspecified atrial fibrillation
CPT/HCPCS: 36415; 80053; 80061; 83036; 84436; 84443; 84481; 85025; 85610; G0103; G0463

== ENCOUNTER 2024-02-22 09:49 | Outpatient (RCR) | payer MEDICARE, SELFPAY | END 2024-03-22 23:59 | disposition home or self-care (01) | LOC: MM 09:49 | PROVIDERS: PCP Family Medicine; Visit Provider Internal Medicine | DX: Z51.81 Encounter for therapeutic drug level monitoring (principal); Z79.01 Long term (current) use of anticoagulants; I48.91 Unspecified atrial fibrillation | CPT/HCPCS: 85610; G0463 ==

== ENCOUNTER 2024-03-23 10:12 | Outpatient (RCR) | payer MEDICARE, SELFPAY | END 2024-04-22 09:54 | disposition home or self-care (01) | LOC: MM 10:12 | PROVIDERS: PCP Family Medicine; Visit Provider Internal Medicine | DX: Z51.81 Encounter for therapeutic drug level monitoring (principal); Z79.01 Long term (current) use of anticoagulants; I48.91 Unspecified atrial fibrillation ==

== ENCOUNTER 2024-04-24 00:04 | Outpatient (RCR) | payer MEDICARE, SELFPAY | END 2024-05-23 15:00 | disposition home or self-care (01) | LOC: MM 00:04 | PROVIDERS: PCP Family Medicine; Visit Provider Internal Medicine | DX: Z51.81 Encounter for therapeutic drug level monitoring (principal); Z79.01 Long term (current) use of anticoagulants; I48.91 Unspecified atrial fibrillation | CPT/HCPCS: 85610; G0463 ==

== ENCOUNTER 2024-05-26 00:47 | Outpatient (RCR) | payer MEDICARE, SELFPAY | END 2024-06-20 10:33 | disposition home or self-care (01) | LOC: MM 00:47 | PROVIDERS: PCP Family Medicine; Visit Provider Internal Medicine | DX: Z51.81 Encounter for therapeutic drug level monitoring (principal); Z79.01 Long term (current) use of anticoagulants; I48.91 Unspecified atrial fibrillation | CPT/HCPCS: 85610; G0463 ==

== ENCOUNTER 2024-06-22 07:28 | Outpatient (RCR) | payer MEDICARE, SELFPAY | END 2024-07-18 13:40 | disposition home or self-care (01) | LOC: MM 07:28 | PROVIDERS: PCP Family Medicine; Visit Provider Internal Medicine | DX: Z51.81 Encounter for therapeutic drug level monitoring (principal); Z79.01 Long term (current) use of anticoagulants; I48.91 Unspecified atrial fibrillation | CPT/HCPCS: 85610; G0463 ==

== ENCOUNTER 2024-07-22 04:10 | Outpatient (RCR) | payer MEDICARE, SELFPAY | END 2024-08-20 15:19 | disposition home or self-care (01) | LOC: MM 04:10 | PROVIDERS: PCP Family Medicine; Visit Provider Internal Medicine | DX: Z51.81 Encounter for therapeutic drug level monitoring (principal); Z79.01 Long term (current) use of anticoagulants; I48.20 Chronic atrial fibrillation, unspecified | CPT/HCPCS: 85610; G0463 ==

== ENCOUNTER 2024-08-21 04:36 | Outpatient (RCR) | payer MEDICARE, SELFPAY | END 2024-09-19 15:14 | disposition home or self-care (01) | LOC: MM 04:36 | PROVIDERS: PCP Family Medicine; Visit Provider Internal Medicine | DX: Z51.81 Encounter for therapeutic drug level monitoring (principal); Z79.01 Long term (current) use of anticoagulants; I48.91 Unspecified atrial fibrillation | CPT/HCPCS: 85610; G0463 ==

== ENCOUNTER 2024-09-21 07:17 | Outpatient (RCR) | payer MEDICARE, SELFPAY | END 2024-10-16 14:21 | disposition home or self-care (01) | LOC: MM 07:17 | PROVIDERS: PCP Family Medicine; Visit Provider Internal Medicine | DX: Z51.81 Encounter for therapeutic drug level monitoring (principal); Z79.01 Long term (current) use of anticoagulants; I48.91 Unspecified atrial fibrillation | CPT/HCPCS: 85610; G0463 ==

== ENCOUNTER 2024-10-21 02:24 | Outpatient (RCR) | payer MEDICARE, SELFPAY | END 2024-11-20 16:31 | disposition home or self-care (01) | LOC: MM 02:24 | PROVIDERS: PCP Family Medicine; Visit Provider Internal Medicine | DX: Z51.81 Encounter for therapeutic drug level monitoring (principal); Z79.01 Long term (current) use of anticoagulants; I48.91 Unspecified atrial fibrillation | CPT/HCPCS: 85610; G0463 ==

== ENCOUNTER 2024-11-21 01:28 | Outpatient (RCR) | payer MEDICARE, SELFPAY | END 2024-12-18 12:53 | disposition home or self-care (01) | LOC: MM 01:28 | PROVIDERS: PCP Family Medicine; Visit Provider Internal Medicine | DX: Z51.81 Encounter for therapeutic drug level monitoring (principal); Z79.01 Long term (current) use of anticoagulants; I48.0 Paroxysmal atrial fibrillation | CPT/HCPCS: 85610; G0463 ==

== ENCOUNTER 2024-12-22 00:26 | Outpatient (RCR) | payer MEDICARE, SELFPAY | END 2025-01-20 15:16 | disposition home or self-care (01) | LOC: MM 00:26 | PROVIDERS: PCP Family Medicine; Visit Provider Internal Medicine | DX: Z51.81 Encounter for therapeutic drug level monitoring (principal); Z79.01 Long term (current) use of anticoagulants; I48.0 Paroxysmal atrial fibrillation | CPT/HCPCS: 85610; G0463 ==

== ENCOUNTER 2025-01-21 01:20 | Outpatient (RCR) | payer MEDICARE, SELFPAY | END 2025-02-20 23:59 | disposition home or self-care (01) | LOC: MM 01:20 | PROVIDERS: PCP Family Medicine; Visit Provider Internal Medicine | DX: Z51.81 Encounter for therapeutic drug level monitoring (principal); Z79.01 Long term (current) use of anticoagulants; I48.0 Paroxysmal atrial fibrillation | CPT/HCPCS: 85610; G0463 ==

== ENCOUNTER 2025-02-21 11:39 | Outpatient (RCR) | payer MEDICARE, SELFPAY | END 2025-03-22 23:59 | disposition home or self-care (01) | LOC: MM 11:39 | PROVIDERS: PCP Family Medicine; Visit Provider Family Medicine | DX: Z51.81 Encounter for therapeutic drug level monitoring (principal); Z79.01 Long term (current) use of anticoagulants; I48.91 Unspecified atrial fibrillation | CPT/HCPCS: 85610; G0463 ==

== ENCOUNTER 2025-03-25 11:28 | Outpatient (RCR) | payer MEDICARE, SELFPAY | END 2025-04-22 13:26 | disposition home or self-care (01) | LOC: MM 11:28 | PROVIDERS: PCP Family Medicine; Visit Provider Family Medicine | DX: Z51.81 Encounter for therapeutic drug level monitoring (principal); Z79.01 Long term (current) use of anticoagulants; I48.91 Unspecified atrial fibrillation | CPT/HCPCS: 85610; G0463 ==